=== PATIENT | female | born 1970 | race Caucasian/White ===

== ENCOUNTER 2017-08-23 07:43 | Emergency (ER) | payer SELFPAY ==
[~2017-08-23 07:43] MED LIST: NORE1TAB60 PO
[2017-08-23 07:46] VITALS: BP 151/75; PULSE 64; RESP 20; TEMP 98.2; O2SAT 99
--- NOTE | 2017-08-23 08:07 | PD ---
HPI Chief Complaint: Laceration/Skin Injury Time Seen by Provider: 08:06 Travel History International Travel<30 days: No Contact w/Intl Traveler<30days: No Traveled to known affect area: No History of Present Illness HPI 47-year-old female presents to the emergency Department with accidental laceration to the posterior lateral proximal hand, at the base of the thumb. Patient was using a rotary evangelina on the floor which slipped causing a laceration. Patient denies decreased range of motion or function. Patient does have some mild numbness distal to the laceration on the dorsal surface of the hand. He shouldn't is in need of a tetanus shot. Pain is 10/ 10. Patient is allergic to Steri-Strips. [facility] Social History Alcohol Use: Yes Tobacco Use: No Substance Use: No Allergies-Medications (Allergen,Severity, Reaction): Uncoded Allergies: steri strips (Adverse Reaction, Severe, blisters , 08/23/17) Reported Meds & Prescriptions Reported Meds & Active Scripts Active Loestrin 1/20 (Norethindrone-Ethinyl Estradiol) 1-20 Mg-Mcg Tab 1 Tab PO DAILY Review of Systems Except as stated in HPI: all other systems reviewed are Neg General / Constitutional: No: Fever Eyes: No: Visual changes HENT: No: Headaches Cardiovascular: No: Chest Pain or Discomfort Respiratory: No: Shortness of Breath Gastrointestinal: No: Abdominal Pain Genitourinary: No: Dysuria Musculoskeletal: No: Pain Skin: Positive Lesions (laceration.), No Rash Neurologic: No: Weakness Psychiatric: No: Depression Endocrine: No: Polydipsia Hematologic/Lymphatic: No: Easy Bruising Physical Exam Narrative GENERAL: Patient is in mild to moderate distress. SKIN: Warm and dry. Normal color. Normal turgor. Patient has a 4 cm linear laceration to the base of the thumb on the left hand with bleeding controlled. HEAD: Atraumatic. Normocephalic. EYES: Pupils equal and round. No scleral icterus. No injection or drainage. ENT: No nasal bleeding or discharge. Mucous membranes pink and moist. NECK: Trachea midline. No JVD. CARDIOVASCULAR: Regular rate and rhythm. RESPIRATORY: No accessory muscle use. Clear to auscultation. Breath sounds equal bilaterally. GASTROINTESTINAL: Abdomen soft, non-tender, nondistended. Hepatic and splenic margins not palpable. MUSCULOSKELETAL: Extremities without clubbing, cyanosis, or edema. No obvious deformities. Patient has normal flexion and extension and neurovascular exam of the left thumb. Patient has mild numbness just distal to the laceration on the dorsal surface of the left hand last thumb. NEUROLOGICAL: Awake and alert. No obvious cranial nerve deficits. Motor grossly within normal limits. Five out of 5 muscle strength in the arms and legs. Normal speech. PSYCHIATRIC: Appropriate mood and affect; insight and judgment normal. Data Data Last Documented VS Vital Signs Date Time Temp Pulse Resp B/P (MAP) Pulse Ox O2 Delivery O2 Flow Rate FiO2 08/23/17 07:46 98.2 64 20 151/75 (100) 99 Orders Orders Tetanus/Diphtheria Tox Adult (Tetanus/Di (08/23/17 08:15) Lidocai-Epi 2%-1:100,000 Inj (Xylocaine- (08/23/17 08:15) MDM Medical Decision Making Medical Screen Exam Complete: Yes Emergency Medical Condition: Yes Differential Diagnosis Laceration. Tendon injury. Need for tetanus. Narrative Course Lacerations repaired. See laceration note. Dressing should remain in place for the next 48 hours. Patient is placed on Keflex 500 mg 3 times a day 7 days. Patient take ibuprofen and Tylenol for discomfort. Patient denies the area frequently as needed. Patient follow with her primary care physician or return here in 2 days for wound check. Patient return sooner if symptoms worsen as needed. Sutures should remain in place for 7-10 days. Procedures Procedure Narrative LACERATION LOCATION: Left dorsal lateral hand/proximal thumb LENGTH: 4 cm NUMBER OF STITCHES/SHERIN: 5 vertical mattress, one simple suture REPAIR: The area of the laceration was prepped with Betadine and sterilely draped. The laceration was infiltrated with 4 mL 2% lidocaine with epi. The wound was copiously irrigated and explored without evidence of foreign body, tendon injury or neurovascular injury. The wound was closed using 5-0 Prolene. This was a single layer repair. A sterile dressing was applied. The patient was advised to keep the dressing clean and dry. Patient tolerated the procedure well. Diagnosis Primary Impression: Laceration of left hand without complication, excluding fingers Qualified Codes: S61.412A - Laceration without foreign body of left hand, initial encounter Patient Instructions: Care For Your Stitches (DC), General Instructions Additional Instructions: Lacerations repaired. Dressing should remain in place for the next 48 hours. Patient is placed on Keflex 500 mg 3 times a day 7 days. Patient take ibuprofen and Tylenol for discomfort. Patient denies the area frequently as needed. Patient follow with her primary care physician or return here in 2 days for wound check. Patient return sooner if symptoms worsen as needed. Sutures should remain in place for 7-10 days. Med/Other Pt SpecificInfo: Prescription(s) given Disposition: 01 DISCHARGE HOME Condition: Stable Pardeep Shoemaker Aug 23, 2017 08:07
[2017-08-23] MEDS ORDERED: LIDOCAINE 2%/EPINEPHrine 1:100,000 20ML MDV NERV BLOCK ONE (08:15)
[2017-08-23] MEDS ORDERED: TETANUS/DIPHTHERIA TOXOID ADULT 0.5 ML VIAL IM ONE (08:15)
[2017-08-23] MEDS ORDERED: CEPH-460 PO (08:43)
== END 2017-08-23 08:53 | disposition home or self-care (01) ==
LOC: NEPD 07:43
DX: S61.412A Laceration without foreign body of left hand, initial encounter (principal); W31.2XXA Contact with powered woodworking and forming machines, initial encounter; Y93.E9 Activity, other interior property and clothing maintenance; Z23 Encounter for immunization
CPT/HCPCS: 12002; 90471; 90714